=== PATIENT | female | born 1945 | race Caucasian/White ===

== ENCOUNTER 2019-01-28 14:55 | Emergency (ER) | payer MEDICARE, OTHER ==
[~2019-01-28] VITALS: Ht 154.9 cm; Wt 91.6 kg
[~2019-01-28 14:55] MED LIST: ALBU2.5V14 NEB; ALBU2.5V8 INH; ASCO500T3 PO; ASPI81TA50 PO; ATORVASTATIN CA80 MG PO; BUDE0.5A3 NEB; CALC-30 PO; CETI10TA22 PO; CETI10TA30 PO; CITA10TA8 PO; CRAN500C6 PO; CYAN-25 PO; CYCL-331 PO; DOCU100T11 PO; FLUT12AE IH; FURO-69 PO; LUBI8CAP4 PO; MECL25TA3 PO; METH-39 PO; METO25TA4 PO; MIRA50TA PO; MULT1TAB52 PO; NEBI5TAB2 PO; NYST1000 PO; OMEG1CAP38 PO; PANT40TA5 PO; POLY17PO5 PO; PRED20TA PO; RANI300C PO; SOLI10TA2 PO
[2019-01-28] MEDS ORDERED: LIDO:MAALOX 1:1 20 ML SINGLE DOSE. PO ONE (15:30)
[2019-01-28 15:49] LABS: BILIRUBIN,URINE NEG (NEG); CLARITY,URINE CLEAR; COLOR,URINE YELLOW; GLUCOSE,URINE NEG (NEG)
[2019-01-28 15:50] LABS: NITRITE,URINE NEG (NEG); UROBILINOGEN,URINE 0.2 mg/dL (0.2 mg/dL)
[2019-01-28 15:51] LABS: BACTERIA,URINE 0 /HPF (0-FEW); HYALINE CASTS, URINE FEW /HPF; RBC,URINE 0 /HPF (0-2); SQUAMOUS EPITHELIAL CELL,UR FEW /LPF
[2019-01-28 15:58] LABS: BASO % 1 % (0-3); EOS # 0.2 x10^3/uL (0.0-0.7); EOS % 5 % (0-3); HEMATOCRIT 37.9 % (36.0-47.0); HEMOGLOBIN 12.7 g/dL (12.0-15.5); LYMPH # 1.7 x10^3/uL (1.0-4.8); LYMPH % 35 % (24-48); MEAN CORPUSCULAR HEMOGLOBIN 32 pg (25-35); MEAN CORPUSCULAR HGB CONC 34 g/dL (31-37); MEAN CORPUSCULAR VOLUME 94 fL (79-100); MONO # 0.6 x10^3/uL (0.0-1.1); MONO % 13 % (0-9); NEUT # 2.2 x10^3uL (1.8-7.7); NEUT % 46 % (31-73); PLATELET COUNT 198 x10^3/uL (140-400); RED BLOOD COUNT 4.03 x10^6/uL (3.50-5.40); RED CELL DISTRIBUTION WIDTH 14.2 % (11.5-14.5); WHITE BLOOD COUNT 4.8 x10^3/uL (4.0-11.0)
[2019-01-28 16:20] LABS: ALBUMIN 3.7 g/dL (3.4-5.0); ALBUMIN/GLOBULIN RATIO 1.1 (1.0-1.7); CALCIUM 9.4 mg/dL (8.5-10.1); TOTAL PROTEIN 7.2 g/dL (6.4-8.2)
[2019-01-28 16:21] LABS: CREATININE 1.6 mg/dL (0.6-1.0); GFR 31.5; POTASSIUM 5.1 mmol/L (3.5-5.1); TOTAL BILIRUBIN 0.7 mg/dL (0.2-1.0)
[2019-01-28] MEDS ORDERED: IV NORMAL SALINE 1,000ML 1,000 ML IV ONE (16:30)
[2019-01-28 17:15] VITALS: BP 131/64
--- NOTE | 2019-01-28 17:25 | PHYS DOC ---
Past History Past Medical History: Arrhythmia, Asthma, Gallstones, High Cholesterol, Hypertension, Other Additional Past Medical Histor: SVT Past Surgical History: Cholecystectomy Alcohol Use: None Drug Use: None Adult General Chief Complaint Chief Complaint: ABDOMINAL PAIN HPI HPI Patient is a 73-year-old female presenting with 3 days of constant sharp epigastric pain related to the back to somewhat her prior ulcer does have a status post cholecystectomy no fever no vomiting she is still able to eat the pain is just increasing she was worried ulcer so came to the ER for evaluation. Review of Systems Review of Systems Constitutional: Denies fever or chills [] Eyes: Denies change in visual acuity, redness, or eye pain [] HENT: Denies nasal congestion or sore throat [] Respiratory: Denies cough or shortness of breath [] Cardiovascular: No additional information not addressed in HPI [] GI: Integument: Denies rash or skin lesions [] Neurologic: Denies headache, focal weakness or sensory changes [] Endocrine: Denies polyuria or polydipsia [] All other systems were reviewed and found to be within normal limits, except as documented in this note. Current Medications Current Medications Current Medications Medications (Trade) Dose Ordered Sig/Isabel Start Time Stop Time Status Last Admin Dose Admin Multi-Ingredient Mouthwash/Gargle (Gi Cocktail) 20 ml 1X ONCE 01/28/19 15:30 01/28/19 15:31 DC 01/28/19 15:45 20 ML Sodium Chloride 1,000 ml @ 1,000 mls/hr 1X ONCE 01/28/19 16:30 01/28/19 17:29 01/28/19 16:57 1,000 MLS/HR Allergies Allergies Allergies Coded Allergies Type Severity Reaction Last Updated Verified No Known Drug Allergies 08/19/15 No Physical Exam Physical Exam Constitutional: Well developed, well nourished, no acute distress, non-toxic appearance. [] HENT: Normocephalic, atraumatic, bilateral external ears normal, oropharynx moist, no oral exudates, nose normal. [] Eyes: PERRLA, EOMI, conjunctiva normal, no discharge. [] Neck: Normal range of motion, no tenderness, supple, no stridor. [] Cardiovascular:Heart rate regular rhythm, no murmur [] Lungs & Thorax: Bilateral breath sounds clear to auscultation [] Abdomen: Bowel sounds normal, soft, epigastric tenderness no peritoneal signs no rebound or guarding noted. Skin: Warm, dry, no erythema, no rash. [] Back: No tenderness, no CVA tenderness. [] Extremities: No tenderness, no cyanosis, no clubbing, ROM intact, no edema. [] Neurologic: Alert and oriented X 3, normal motor function, normal sensory function, no focal deficits noted. [] Psychologic: Affect normal, judgement normal, mood normal. [] Current Patient Data Vital Signs Vital Signs Date Time Temp Pulse Resp B/P (MAP) Pulse Ox O2 Delivery O2 Flow Rate FiO2 01/28/19 15:46 48 20 118/56 (76) 96 Room Air 01/28/19 15:00 97.6 Lab Results Laboratory Tests Test 01/28/19 15:00 01/28/19 15:38 Urine Collection Type Unknown Urine Color Yellow Urine Clarity Clear Urine pH 5.5 Urine Specific Eldred 1.020 Urine Protein Neg (NEG-TRACE) Urine Glucose (UA) Neg mg/dL (NEG) Urine Ketones (Stick) Neg mg/dL (NEG) Urine Blood Neg (NEG) Urine Nitrite Neg (NEG) Urine Bilirubin Neg (NEG) Urine Urobilinogen Dipstick 0.2 mg/dL (0.2 mg/dL) Urine Leukocyte Esterase Trace (NEG) Urine RBC 0 /HPF (0-2) Urine WBC 1-4 /HPF (0-4) Urine Squamous Epithelial Cells Few /LPF Urine Bacteria 0 /HPF (0-FEW) Urine Hyaline Casts Few /HPF Urine Mucus Slight /LPF White Blood Count 4.8 x10^3/uL (4.0-11.0) Red Blood Count 4.03 x10^6/uL (3.50-5.40) Hemoglobin 12.7 g/dL (12.0-15.5) Hematocrit 37.9 % (36.0-47.0) Mean Corpuscular Volume 94 fL (79-100) Mean Corpuscular Hemoglobin 32 pg (25-35) Mean Corpuscular Hemoglobin Concent 34 g/dL (31-37) Red Cell Distribution Width 14.2 % (11.5-14.5) Platelet Count 198 x10^3/uL (140-400) Neutrophils (%) (Auto) 46 % (31-73) Lymphocytes (%) (Auto) 35 % (24-48) Monocytes (%) (Auto) 13 % (0-9) H Eosinophils (%) (Auto) 5 % (0-3) H Basophils (%) (Auto) 1 % (0-3) Neutrophils # (Auto) 2.2 x10^3uL (1.8-7.7) Lymphocytes # (Auto) 1.7 x10^3/uL (1.0-4.8) Monocytes # (Auto) 0.6 x10^3/uL (0.0-1.1) Eosinophils # (Auto) 0.2 x10^3/uL (0.0-0.7) Basophils # (Auto) 0.0 x10^3/uL (0.0-0.2) Sodium Level 141 mmol/L (136-145) Potassium Level 5.1 mmol/L (3.5-5.1) Chloride Level 103 mmol/L (98-107) Carbon Dioxide Level 33 mmol/L (21-32) H Anion Gap 5 (6-14) L Blood Urea Nitrogen 40 mg/dL (7-20) H Creatinine 1.6 mg/dL (0.6-1.0) H Estimated GFR (Cockcroft-Gault) 31.5 BUN/Creatinine Ratio 25 (6-20) H Glucose Level 98 mg/dL (70-99) Calcium Level 9.4 mg/dL (8.5-10.1) Total Bilirubin 0.7 mg/dL (0.2-1.0) Aspartate Amino Transferase (AST) 15 U/L (15-37) Alanine Aminotransferase (ALT) 18 U/L (14-59) Alkaline Phosphatase 113 U/L (46-116) Troponin I Quantitative < 0.017 ng/mL (0-0.055) Total Protein 7.2 g/dL (6.4-8.2) Albumin 3.7 g/dL (3.4-5.0) Albumin/Globulin Ratio 1.1 (1.0-1.7) Lipase 128 U/L (73-393) EKG EKG []EKG shows a wide-complex rhythm QRS 146 sinus rhythm widened QRS in light of that no obvious ischemia was identified interpreted by me the timing encounter Radiology/Procedures Radiology/Procedures [] Impressions: CT scan shows mild wall thickening of the distal stomach or the lack of distention could contribute to this appearance inflammatory or infectious gastroenteritis as well as neoplasm or possible and should be considered no other definite acute abnormality Course & Med Decision Making Course & Med Decision Making Pertinent Labs and Imaging studies reviewed. (See chart for details) []Noted a mild elevation in creatinine given a liter of IV fluids. In summary this is a 73-year-old female came in with 3 days of epigastric pain related to the back thinks it's an ulcer gets better after eating and comes back. Abdomen is essentially tenderness isolated the epigastrium no peritoneal signs CT scan is pending to evaluate rule out perforation which I have low suspicion for versus other process. If negative we will plan to send patient home with antacid therapy discussion about diet and close follow-up. Noted the CT scan I did tell her about the need for follow-up including likely endoscopy will give her phone number for local GI. We talked about plan diet Dragon Disclaimer Dragon Disclaimer This electronic medical record was generated, in whole or in part, using a voice recognition dictation system. Departure Departure: Impression: Primary Impression: Abdominal pain Additional Impression: Peptic ulcer disease Disposition: HOME, SELF-CARE Condition: STABLE Referrals: YOVANNY JEROME MD (PCP) MIKEY TRIMBLE MD Patient Instructions: Gastritis, Adult, [id number] Scripts Pantoprazole Sodium (PROTONIX) 40 Mg Tablet. 1 TAB PO DAILY for gastritis, #30 TAB 0 Refills Prov: IWONA ROYAL MD 01/28/19 Problem Qualifiers IWONA ROYAL MD Jan 28, 2019 17:25
[2019-01-28] MEDS ORDERED: PANT40TA3 PO (17:58)
--- NOTE | 2019-01-28 19:31 | EKG ---
[address] [address] Test Date: 2019-01-28 Test Time: 15:18:45 Pat Name: GREY MURRAY Department: Room: Gender: F Coding File Clerk: : [id number] Requested By: IWONA ROYAL Order Number: [id number] Reading MD: Measurements Intervals [place] Rate: 93 P: 29 SC: 190 QRS: -7 QRSD: 146 T: 62 QT: 416 QTc: 520 Interpretive Statements SINUS RHYTHM VENTRICULAR PREMATURE COMPLEX(ES) ATRIAL PREMATURE COMPLEX(ES) LEFTWARD AXIS NON SPECIFIC INTRAVENTRICULAR BLOCK ABNORMAL ECG RI6.01 No previous ECG available for comparison
--- NOTE | 2019-01-28 19:31 | RAD ---
CT ABDOMEN PELVIS WO CONTRAST Indication: Mid abdominal pain, vomiting. Exposure: One or more of the following individualized dose reduction techniques were utilized for this examination: 1. Automated exposure control 2. Adjustment of the mA and/or kV according to patient size 3. Use of iterative reconstruction technique. Comparison: None are available. Technique: No intravenous contrast given. Findings: Evaluation of solid viscera, bowel and vasculature is compromised by the noncontrast technique. Mild linear markings in lung bases compatible with atelectasis. Heart size appears enlarged. Liver appears unremarkable. Spleen unremarkable. Pancreatic head partially obscured by artifact from nearby surgical clips but no definite abnormality. No adrenal mass. No evidence of renal calculus or hydronephrosis. Gallbladder surgically absent. Aorta nonaneurysmal. Mild aortic calcifications. Mild gastric wall thickening, particularly at the distal stomach. Antrum and proximal duodenum are poorly seen due to artifact from gallbladder clips. No significant small bowel distention. No evidence of acute colitis. [id number] retained stool in the colon. The appendix, if present, is not clearly visualized. There is some density within the colon may be due to a prior contrast procedure. No significant pneumoperitoneum. No evidence of ascites. No definite abnormality of the urinary bladder. No evidence of pelvic mass. Degenerative spondylosis spine. Degenerative changes at the skeletal pelvis. No evidence of aggressive bone destruction IMPRESSION: 1. Mild wall thickening of the distal stomach. Although lack of distention could contribute to this appearance, inflammatory or infectious gastroenteritis, as well as neoplasm, are possible and should be considered. 2. No other definite acute abnormality. Electronically signed by: David Barboza MD (01/28/2019 5:39 PM) [id number]
== END 2019-01-28 18:07 | disposition home or self-care (01) ==
LOC: ER 14:55
DX: K27.9 Peptic ulcer, site unspecified, unspecified as acute or chronic, without hemorrhage or perforation (principal); J45.909 Unspecified asthma, uncomplicated; E78.00 Pure hypercholesterolemia, unspecified; I10 Essential (primary) hypertension; Z90.49 Acquired absence of other specified parts of digestive tract
CPT/HCPCS: 36415; 74176; 80053; 81001; 83690; 84484; 85025; 87086; 93005; 99285-25; J7030